=== PATIENT | female | born 1960 | race Caucasian/White ===

== ENCOUNTER 2019-09-23 12:08 | Emergency (ER) | payer OTHER, SELFPAY ==
--- NOTE | ~2019-09-23 | CT_ITS ---
EXAMINATION: CT brain wo con DATE: 09/23/2019 13:25 INDICATION: Head injury. TECHNIQUE: Computed tomography (CT) of the head was performed without intravenous contrast. The mA wa s adjusted according to patient size. Iterative reconstruction technique was employed. The dose-lengt h product was 605.33 mGy-cm. COMPARISON: None FINDINGS: There is no intracranial hemorrhage, acute infarction, or abnormal intracranial mass lesion . The ventricles are normal in size. There is mild mucosal thickening in the paranasal sinuses. The m astoid air cells are normal. The orbits are normal. IMPRESSION: 1. Normal brain. Reviewed, dictated and finalized at location A. IMPRESSION: 1. Normal brain.
--- NOTE | ~2019-09-23 | CT_ITS ---
EXAMINATION: CT cervical spine wo con DATE: 09/23/2019 13:26 INDICATION: Status post fall. Neck pain. TECHNIQUE: Computed tomography (CT) of the cervical spine was performed without intravenous contrast. The dose-length product was 109 mGy-cm. Automated exposure control and iterative reconstruction tech nique were employed. COMPARISON: None FINDINGS: Normal cervical alignment. No acute fracture or traumatic malalignment. No evidence for spo ndylolisthesis. There are a few scattered osteolytic lesions in the cervical spine. Odontoid process within normal limits. There is mild multilevel uncinate hypertrophy. There is biapical pleural thicke linda/scarring. No paravertebral soft tissue abnormality. IMPRESSION: 1. No acute abnormality of the cervical spine. 2: Few scattered osteolytic lesions of the cervical spine including at C4 and C5. Consider myeloma a nd metastatic disease. 3: Mild cervical spondylosis. Reviewed, dictated and finalized at location A. IMPRESSION: 1. No acute abnormality of the cervical spine. 2: Few scattered osteolytic lesions of the cervical spine including at C4 and C5. Consider myeloma and metastatic disease. 3: Mild cervical spondylosis.
[2019-09-23 12:29] VITALS: BP 132/91; PULSE 108; RESP 16; TEMP 36.7; O2SAT 97
[2019-09-23 15:30] VITALS: BP 161/93; PULSE 68; RESP 20; O2SAT 100
--- NOTE | 2019-09-23 15:39 | ED.HEATRA ---
HPI - Head Injury General Chief complaint: Head Injury Stated complaint: PCP sent for possible concussion. Time Seen by Provider: 09/23/19 15:32 Source: patient and RN notes reviewed Mode of arrival: ambulatory Limitations: no limitations History of Present Illness HPI Narrative: Pt is a 59 y/o female presenting to the ED c/o HI secondary to fall. Pt reports she was pushing a trash can yesterday when she fell forward and hit her head on the trash can. Pt states she started having nausea and dry heaving about 2 hrs later, and also reports bilateral eye pain, neck pain, HOUGH, and back pain. Pt states she does not have chronic back pain. Pt notes she took Aleve at 0400 this morning. Pt reports her PCP is Dr. Stover. Onset (ago): unknown (Yesterday) Mechanism of Injury: fall Place: home Associated symptoms: nausea, vomiting (Dry heaving), neck pain and other (Bilateral eye pain; back pain; Headache) Related Data Allergies Allergy/AdvReac Type Severity Reaction Status Date / Time alendronate sodium [Fosamax] Allergy Unknown skull pain. Verified 07/21/17 21:20 NKDA Allergy Unknown Uncoded 10/05/10 11:54 Review of Systems Review of Systems: All systems reviewed & are unremarkable except as noted in HPI and below Eyes: Eyes: Reports eye pain (Bilateral) Gastrointestinal: Gastrointestinal: Reports nausea and Reports vomiting (Dry heaving) Musculoskeletal: Musculoskeletal: Reports back pain and Reports neck pain Neurologic: Reports headache(s) PMFSH Past Medical History Medical History History of basal cell cancer Migraine Surgical History Surgical History No significant past surgical history Family History Family History Grandparent Carcinoma of colon Sibling Colon polyp Mother Family history of atrial fibrillation, Onset Age: 80 Social History Social History Smoking status: Never smoker Alcohol intake: never Gender identity (if verbalized by the patient): Female Exam Narrative: Exam Narrative: GENERAL: well-nourished, patient laying in bed with HEAD: Normocephalic, atraumatic EYES: PERRLA and EOMI, conjunctiva clear without discharge THROAT:Mucous membranes moist, NECK: Supple, without lymphadenopathy or mass RESPIRATORY: No respiratory distress, Airway patent, Respirations non-labored, Clear to auscultation without rales, rhonchi or wheeze HEART: Regular rate and rhythm. No murmur heard. Normal peripheral pulses. ABDOMEN: Soft, nontender, nondistended, normal active bowel sounds. No masses. No rebound or guarding, No organomegaly. EXTREMITIES: No edema, normal strength with full range of motion. SKIN: Warm, dry, normal color without rash NEURO: Alert and oriented x3. CN 2-12 grossly intact. No focal deficits. PSYCH: Normal mood and affect. Course Reevaluation(s) Reevaluation #1: PAtient states she feels much better. I have discuss Ct scan results. Date: 09/23/19 Time: 17:38 Consultations Consultation #1: I discussed CT scan regarding osteolytic lesions in spine. He states patient should call office in the morning to arrange to be see tomorrow in clinic to determine plan Date: 09/23/19 Time: 17:37 Vital Signs Vital signs: Vital Signs Temperature 98.0 F 09/23/19 12:29 Pulse Rate 108 H 09/23/19 12:29 Respiratory Rate 16 09/23/19 12:29 Blood Pressure 132/91 H 09/23/19 12:29 Pulse Oximetry 97 09/23/19 12:29 Temperature 98.0 F 09/23/19 12:29 Pulse Rate 71 09/23/19 18:20 Respiratory Rate 16 09/23/19 18:20 Blood Pressure 129/62 09/23/19 18:20 Pulse Oximetry 98 09/23/19 18:20 MDM - Head Injury Imaging Data Radiologist's impression: ITS Impressions Head CT 09/23/19 13:29 IMPRESSION: 1. Normal brain. Cervical Spine CT 09/23/19 13:46 IMPRESSION: 1. No
[2019-09-23] MEDS: LACTATED RINGERS 1,000 ML 999 ML IV CONT (16:14)
[2019-09-23] MEDS: METOCLOPRAMIDE HCL INJ 10 MG/2 ML VIAL IV PUSH (16:14)
[2019-09-23 18:20] VITALS: BP 129/62; PULSE 71; RESP 16; O2SAT 98
== END 2019-09-23 18:20 | disposition home or self-care (01) ==
PROVIDERS: Emergency Provider General Practice; PCP Family Medicine
DX: S06.0X0A Concussion without loss of consciousness, initial encounter (principal); Z85.828 Personal history of other malignant neoplasm of skin; M47.812 Spondylosis without myelopathy or radiculopathy, cervical region; M89.9 Disorder of bone, unspecified; W01.198A Fall on same level from slipping, tripping and stumbling with subsequent striking against other object, initial encounter
CPT/HCPCS: 70450; 72125; 96361; 96374; 96375; 99284; J0131; J1200; J2765; J7120; L0140

== ENCOUNTER → 2019-10-04 09:54 | Outpatient (CLI) | payer OTHER, SELFPAY ==
--- NOTE | ~2019-10-04 | CT_ITS ---
EXAMINATION: CT abdomen pelvis wo con DATE: 10/04/2019 10:27 INDICATION: Osteolytic lesions of C4-C5 TECHNIQUE: Computed tomography (CT) of the abdomen and pelvis was performed without intravenous contr ast. Automated exposure control and iterative reconstruction technique were employed. Exam dose: 367 .67 mGy-cm total exam DLP. COMPARISON: 10/03/2019 CT cervical spine FINDINGS: Mild discoid atelectasis or scarring in the lower lung zones. No infiltrate or consolidatio n or pulmonary mass lesion is evident. No pericardial or pleural effusion. No hepatic space-occupying mass lesion is evident.. The gallbladder is present. Gallstones cannot be excluded. No gallbladder wall thickening or perichol ecystic fluid or inflammation is evident. Splenic calcified granulomas. Normal splenic size. No pancreatic mass lesion, ductal dilatation or pancreatic calcification. There are 2 small nonobstructing lower pole left renal calculi. No right renal calculus. No ureteral calculus or hydroureteronephrosis. The urinary bladder is evacuated and not optimally evaluated. No bowel obstruction or intraperitoneal free air is evident. Normal caliber and minimal calcification of the abdominal aorta. No intraperitoneal or retroperitonea l or pelvic mass lesion or adenopathy or ascites is evident. Tarlov cysts are noted in the upper sacral area. No suspicious osteolytic or osteoblastic lesions are noted. IMPRESSION: Nonobstructive left nephrolithiasis Reviewed, dictated and finalized at Location A. Reviewed, dictated and finalized at location B.
--- NOTE | ~2019-10-04 | XR_ITS ---
XR chest 2V DATE: 10/04/2019 10:27 INDICATION: Abnormal findings reported on CT cervical spine examination: Biapical pleural thickening/ scarring TECHNIQUE: 2 views COMPARISON: 10/03/2019 CT cervical spine FINDINGS: There is bilateral hyperinflation with relative flattening of the diaphragm and increased r etrosternal airspace, suggesting COPD. Nipple shadows overlie the lower chest on frontal view. There is bilateral apical scarring. No pulmonary infiltrate or consolidation, pleural effusion or pul monary vascular congestion or pneumothorax is detected. Heart size is within normal limits. No hilar or mediastinal enlargement. Diffuse osteopenia. IMPRESSION: Bilateral hyperinflation suggesting COPD Bilateral apical scarring Diffuse osteopenia. Reviewed, dictated and finalized at location D.
--- NOTE | ~2019-10-04 | XR_ITS ---
XR lumbar spine min 4V DATE: 10/04/2019 10:27 INDICATION: Osteolytic lesions reported in cervical spine on 10/03/2019 CT cervical spine examination TECHNIQUE: Standing AP, lateral and coned lateral lumbosacral views. Standing bilateral oblique views . COMPARISON: 09/23/2019 CT cervical spine 01/25/2013 MRI lumbar spine FINDINGS: There is diffuse osteopenia. No fracture or spondylolisthesis. No spondylolysis. The lumbar and included lower thoracic pedicles a re intact. The lumbar and lumbosacral interspaces are well preserved. The sacroiliac joints appear no rmal. IMPRESSION: Osteopenia Reviewed, dictated and finalized at location D. IMPRESSION: Osteopenia
== END ==
PROVIDERS: PCP Family Medicine; Visit Provider Family Medicine
DX: R93.7 Abnormal findings on diagnostic imaging of other parts of musculoskeletal system (principal); N20.0 Calculus of kidney; M85.88 Other specified disorders of bone density and structure, other site; R91.8 Other nonspecific abnormal finding of lung field
CPT/HCPCS: 71046; 72110; 74176

== ENCOUNTER → 2019-10-09 07:06 | Outpatient (CLI) | payer OTHER, SELFPAY ==
--- NOTE | ~2019-10-09 | MR_ITS ---
EXAMINATION: MR cervical spine wo con DATE: 10/09/2019 08:19 INDICATION: Headache TECHNIQUE: Magnetic resonance imaging (MRI) of the cervical spine was performed without intravenous c ontrast. Sequences included sagittal T2-weighted FSE, sagittal T2-weighted FS FSE, sagittal T1-weight ed FSE, axial MERGE and axial T2-weighted FSE. COMPARISON: CT dated 09/23/2019 FINDINGS: Evaluation mildly limited by some motion artifact or blurring to some degree on multiple sequences. M ildly exaggerated cervical lordosis. Vertebral body heights are normal. Bone marrow signal intensit y is normal. Specifically no lesions identified at the regions of increased lucency on prior CT which is likely related to spotty osteopenia. Intervertebral disc heights are normal. Cord signal appears normal on the axial and T2-weighted sagittal images with likely artifactual mild heterogeneity to the signal on the STIR images. Prominent perineural cyst at the right T1-T2 neural foramen. Likely benig n T2 hyperintense 3 mm nodule in the left thyroid lobe. Posterior biapical pleural-parenchymal scarri ng. The following disc levels are specifically discussed: C2-C3: The disc does not extend beyond the endplate margin. There is minimal bilateral uncovertebral joint osteoarthritis. There is minimal left and mild right facet joint osteoarthritis. There is no ne ural foraminal stenosis. There is no central canal stenosis. C3-C4: The disc does not extend beyond the endplate margin. There is mild left and minimal right unco vertebral joint osteoarthritis. There is mild right and minimal left facet joint osteoarthritis. Ther e is no neural foraminal stenosis. There is no central canal stenosis. C4-C5: The disc does not extend beyond the endplate margin. There is mild bilateral uncovertebral warren nt osteoarthritis. There is moderate left and mild to moderate right facet joint osteoarthritis. Ther e is no neural foraminal stenosis. There is no central canal stenosis. C5-C6: The disc does not extend beyond the endplate margin. There is mild bilateral uncovertebral warren nt osteoarthritis. There is mild left and mild to moderate right facet joint osteoarthritis. There is mild left neural foraminal stenosis. There is no central canal stenosis. C6-C7: The disc does not extend beyond the endplate margin. There is minimal bilateral uncovertebral joint osteoarthritis. There is minimal bilateral facet joint osteoarthritis. There is no neural koby inal stenosis. There is no central canal stenosis. C7-T1: The disc does not extend beyond the endplate margin. There is minimal bilateral uncovertebral joint osteoarthritis. There is mild left and mild to moderate right facet joint osteoarthritis. There is no neural foraminal stenosis. There is no central canal stenosis. IMPRESSION: 1. Mild cervical spondylosis. No acute osseous abnormality. No suspicious bone lesions. Reviewed, dictated and finalized at location A.
--- NOTE | ~2019-10-09 | MR_ITS ---
EXAMINATION: MR brain/brain stem wo con DATE: 10/09/2019 08:19 INDICATION: Headache TECHNIQUE: Magnetic resonance imaging (MRI) of the brain and brainstem was performed without intraven ous contrast. Sequences included sagittal and axial T1-weighted SE, axial diffusion-weighted FS SE, a xial T2*-weighted GRE, axial T2-weighted FLAIR Propeller, and axial T2-weighted Propeller. Apparent d iffusion coefficient (ADC) maps were created. COMPARISON: CT dated 09/23/2019 and MRI brain dated 06/07/2016. FINDINGS: No acute intracranial hemorrhage, infarction, mass or mass effect. There are scattered mild periventricular and subcortical white matter changes, most likely related to small vessel ischemic d isease (microangiopathy). Structures of the posterior fossa including 7/8th cranial nerve complexes a re normal. There is a small mucous retention cyst left maxillary sinus. Midline sagittal images are u nremarkable. Flow voids are unremarkable. No ventriculomegaly or midline shift. IMPRESSION: 1. No acute intracranial abnormality. 2: Chronic age-related findings. Reviewed, dictated and finalized at location A.
== END ==
PROVIDERS: PCP Family Medicine; Visit Provider Psychiatry & Neurology Neurology
DX: R51 Headache (principal); M47.892 Other spondylosis, cervical region
CPT/HCPCS: 70551; 72141

== ENCOUNTER 2019-10-09 08:34 | Outpatient (CLI) | payer OTHER, SELFPAY ==
--- NOTE | ~2019-10-09 | NM_ITS ---
NM bone scan whole body INDICATION: Osteolytic lesions of the cervical spine. Evaluate for abnormal tracer uptake. TECHNIQUE: The patient was injected with 25 mCi Tc 99m HDP. Gamma camera images of the region of int erest and whole body were obtained. COMPARISON: CT cervical spine dated 09/23/2019 FINDINGS: There is normal distribution of radiopharmaceutical throughout the skeletal and soft tissue structures. There is mild uptake in the shoulders, consistent with degenerative joint disease. No fo alanna increased radiotracer uptake is identified in the cervical spine. IMPRESSION: 1: Normal bone scan for age. Reviewed, dictated and finalized at location A.
== END 2019-10-09 08:35 | disposition home or self-care (01) ==
PROVIDERS: PCP Family Medicine; Visit Provider Family Medicine
DX: R93.7 Abnormal findings on diagnostic imaging of other parts of musculoskeletal system (principal)
CPT/HCPCS: 78306; A9561

== ENCOUNTER 2019-10-10 13:47 | Outpatient (CLI) | payer OTHER, SELFPAY ==
[2019-10-10 14:02] LABS: Basophils Absolute Auto 0.1 K/mm3 (0.0-0.1); Basophils Percent Auto 1.4 % (0.2-1.2); Eosinophils Absolute Auto 0.2 K/mm3 (0-0.3); Eosinophils Percent Auto 3.5 % (0-4.4); Hematocrit 41.8 % (37.0-47.0); Hemoglobin 13.6 g/dL (12.0-15.0); Immature Granulocyte Absolute 0.01 K/mm3 (0.00-0.031); Immature Granulocyte Percent A 0.2 % (0-0.5); Lymphocytes Absolute Auto 2.24 K/mm3 (0.9-3.2); Lymphocytes Percent Auto 39.4 % (18.3-44.2); Mean Corpuscular HGB Conc 32.5 g/dl (32-36); Mean Corpuscular Hemoglobin 30.4 pg (26-34); Mean Corpuscular Volume 93.5 fl (80-100); Mean Platelet Volume 10.4 fl (7.4-10.4); Monocytes Absolute Auto 0.6 K/mm3 (0.1-0.6); Monocytes Percent Auto 10.7 % (2.6-8.5); Neutrophils Absolute Auto 2.6 K/mm3 (1.3-6.7); Neutrophils Percent Auto 44.8 % (45.5-73.1); Platelet Count Result 251 k/mm3 (150-375); Red Blood Count 4.47 M/mm3 (4.2-5.4); Red Cell Distribution Width 12.8 % (11.5-14.5); White Blood Count 5.7 K/mm3 (4.5-10.0)
[2019-10-10 16:03] LABS: Alanine Aminotransferase 21 U/L (4-35); Albumin Level 4.8 g/dL (3.5-5.1); Alkaline Phosphatase 87 U/L (38-126); Aspartate Amino Transferase 24 U/L (14-36); Bilirubin,Total 0.3 mg/dL (0.2-1.3); Blood Urea Nitrogen 18 mg/dL (7-17); CRP < 0.5 mg/dL (<1.0); Calcium 10.3 mg/dL (8.4-10.2); Carbon Dioxide 30 mmol/L (22-30); Chloride 100 mmol/L (98-107); Estimated Glomerular Filt Rate > 60; Glucose 93 mg/dL (65-105); Potassium 4.5 mmol/L (3.4-5.0); Sodium 139 mmol/L (137-145)
[2019-10-10 16:06] LABS: Immunoglobulin A 89 mg/dL (70-400); Immunoglobulin G 787 mg/dL (700-1600); Immunoglobulin M 108 mg/dL (40-230)
[2019-10-13 03:23] LABS: Albumin 4.7 g/dL (3.8-4.8); Alpha 1 Globulin 0.3 g/dL (0.2-0.3); Alpha 2 Globulin 0.9 g/dL (0.5-0.9); Beta 1 Globulin 0.5 g/dL (0.4-0.6); Gamma Globulin 0.7 g/dL (0.8-1.7); Interpretation Consistent with; Protein, Total 7.3 g/dL (6.1-8.1)
[2019-10-13 03:38] LABS: Kappa\\Lambda Light Chains 1.59 (0.26-1.65); Lambda Light Chain 11.6 mg/L (5.7-26.3)
== END 2019-10-10 13:48 | disposition home or self-care (01) ==
LOC: ANHLAB 13:48
PROVIDERS: PCP Family Medicine; Referring Provider Family Medicine; Visit Provider Internal Medicine Hematology & Oncology
DX: D72.9 Disorder of white blood cells, unspecified (principal)
CPT/HCPCS: 36415; 80053; 82248; 82784; 83883; 84155; 84165; 85025; 86140; 86334

== ENCOUNTER 2021-04-30 00:23 | Day surgery (SDC) | payer OTHER, SELFPAY ==
[2021-04-30 08:17] VITALS: BP 127/87; PULSE 80; RESP 20; TEMP 36.1; O2SAT 95; BMI 18.3
--- NOTE | 2021-04-30 08:24 | WPDGICN ---
Assessment and Plan Assessment and plan (1) Dysphagia: Qualifiers: Dysphagia type: pharyngoesophageal phase Qualified Code(s): R13.14 - Dysphagia, pharyngoesophageal phase Code(s): R13.10 - Dysphagia, unspecified Status: Acute Assessment and Plan: Patient has difficulty swallowing with solid foods catching the mid to upper portion of the chest suspicious for narrowing of the esophagus. Plan is for EGD to assess more thoroughly. Potentially to dilate the esophagus. Further recommendations will be given after endoscopy. (2) Family history of colonic polyps: Code(s): Z83.71 - Family history of colonic polyps Status: Acute Assessment and Plan: Patient's sibling has colon polyps. A grandparent had colon cancer. For this reason surveillance colonoscopy is recommended now and should be considered every 5-10 years. Further recommendations will be given after colonoscopy. GI Consult Note Consult date/time: 04/30/21 08:24 HPI: Es Stevens is a 60 year old female Presents for both colonoscopy and EGD. Patient sister had colon polyps. Patient reports that her own weight appetite bowel movements are normal. She denies abdominal pain. She has had no bleeding. There is a grandparent who had colon cancer. Patient desires neoplasia screening. Additionally patient complains of difficulty swallowing. For several years she states that food will catch in the upper portion of the chest. Typically this will occur with meats and more solid foods. Frequency of food catching has intensified over recent years. Patient denies any weight loss or bleeding. Family history is significant her father had something similar to this occur at an advanced age. Patient presents today for EGD to assess more thoroughly. Review of Systems Review of Systems: All systems reviewed & are unremarkable except as noted in HPI and below [facility] Past Medical History Medical History (Updated 02/17/21 @ 14:02 by Armida Stover MD) History of basal cell cancer Migraine Surgical History Surgical History No significant past surgical history Family History Family History Grandparent Carcinoma of colon Sibling Colon polyp Mother Family history of atrial fibrillation, Onset Age: 80 Social History Social History Smoking status: Never smoker Alcohol intake: never Living arrangements: with family Gender identity (if verbalized by the patient): Female Spiritual care concerns: No Meds Home Medications and Allergies Home Medications Medication Instructions Recorded Confirmed Type cholecalciferol (vitamin D3) 75 75 mcg PO DAILY 02/17/21 04/20/21 History mcg (3,000 unit) tablet denosumab 60 mg/mL subcutaneous 60 mg SUBCUT [id number] 02/17/21 04/20/21 History syringe calcium carbonate-vitamin D2 4 tablet PO DAILY 04/20/21 04/20/21 History [Calcium + Vitamin D] multivitamin 1 tablet PO DAILY 04/20/21 04/20/21 History Allergies Allergy/AdvReac Type Severity Reaction Status Date / Time alendronate sodium [Fosamax] AdvReac Mild skull pain. Verified 04/30/21 08:16 Vital Signs Vital Signs - 24 hr 04/30/21 08:17 Temperature 96.9 F L Pulse Rate 80 Respiratory Rate 20 Blood Pressure 127/87 Pulse Oximetry 95 Exam Narrative: Physical exam reveals patient to be alert. Vital signs stable. HEENT exam is unremarkable. Patient is anicteric. Lungs are clear to auscultation and percussion. Heart is without murmur or extra sounds. Abdominal exam bowel sounds are present soft nontender with no organomegaly. Digital external rectal exam is normal.
[2021-04-30] MEDS: LACTATED RINGERS 1,000 ML 150 ML IV CONT (08:36)
--- NOTE | 2021-04-30 08:38 | P.PNAN_ITS ---
Anes - Initial Pre Proc Eval Procedure: Operation Date: 04/30/21 09:30 Proposed Procedures p Esophagogastroduodenoscopy & Screening Colonoscopy - Luis Alberto Chew MD Date/Time: 04/30/21 08:38 Surgeon: Luis Alberto Chew MD Pre Op Diagnosis: family hx of colon ca, dysphagia Patient Data Age: 60 Gender: F Height: 1.75 m Weight: 56.5 kg Last Vital Signs Temp 36.1 C L 04/30/21 08:17 Pulse 80 04/30/21 08:17 Resp 20 04/30/21 08:17 BP 127/87 04/30/21 08:17 Pulse Ox 95 04/30/21 08:17 Allergies Allergy/AdvReac Type Severity Reaction Status Date / Time alendronate sodium [Fosamax] AdvReac Mild skull pain. Verified 04/30/21 08:16 Home Medications Medication Instructions Recorded Confirmed Type cholecalciferol (vitamin D3) 75 75 mcg PO DAILY 02/17/21 04/20/21 History mcg (3,000 unit) tablet denosumab 60 mg/mL subcutaneous 60 mg SUBCUT [id number] 02/17/21 04/20/21 History syringe calcium carbonate-vitamin D2 4 tablet PO DAILY 04/20/21 04/20/21 History [Calcium + Vitamin D] multivitamin 1 tablet PO DAILY 04/20/21 04/20/21 History Patient hx anesthesia problems: none Family hx anesthesia problems: none Results Review: All pre-operative results and documents have been reviewed as part of the pre-operative evaluation. [facility] Past Medical History Medical History History of basal cell cancer Migraine Surgical History Surgical History No significant past surgical history Family History Family History Grandparent Carcinoma of colon Sibling Colon polyp Mother Family history of atrial fibrillation, Onset Age: 80 Social History Social History Smoking status: Never smoker Alcohol intake: never Living arrangements: with family Gender identity (if verbalized by the patient): Female Spiritual care concerns: No Anes - Eval Final PreProcedure Day of Procedure 04/30/21 08:38 Patient weight: normal Heart: regular rate and rhythm Lungs: clear to auscultation Airway: Mallampati scale class 1 Neurological: alert and oriented Last oral intake: >/= 8 hours ASA classification: I Emergent: no Anesthetic plan: proceed Anesthesia type and monitoring: general GIVS and standard monitoring Results Review: All pre-operative results and documents have been reviewed as part of the pre-operative evaluation. Informed Consent: The patient's anesthetic plan and its attendant risks and benefits were discussed with the patient/family/POA. Questions were solicited and answers provided to the satisfaction of the patient/family/POA.
[2021-04-30 09:19] VITALS: BP 87/59; PULSE 70; RESP 19; O2SAT 99
[2021-04-30 09:29] VITALS: BP 98/70; PULSE 72; RESP 20; O2SAT 100
[2021-04-30 09:39] VITALS: BP 120/76; PULSE 60; RESP 12; O2SAT 100
== END 2021-04-30 09:55 | disposition home or self-care (01) ==
PROVIDERS: PCP Family Medicine; Visit Provider Internal Medicine Gastroenterology
PROC: 0DJ08ZZ Inspection of Upper Intestinal Tract, Via Natural or Artificial Opening Endoscopic (ICD-10-PCS; CPT 43235; principal; 2021-04-30 09:30)
DX: Z12.11 Encounter for screening for malignant neoplasm of colon (principal); K64.8 Other hemorrhoids; Z83.71 Family history of colonic polyps; R13.14 Dysphagia, pharyngoesophageal phase; K63.5 Polyp of colon; Q39.4 Esophageal web; Z85.828 Personal history of other malignant neoplasm of skin
CPT/HCPCS: 45380; 43450; 43235; 88305; J2001; J2704; J7120

== ENCOUNTER 2022-02-23 15:15 | Outpatient (NON) | payer OTHER, SELFPAY ==
[2022-02-23 20:08] LABS: IFOB Positive Control Positive; Immunochemical Fecal Occult Bl Negative (N)
== END 2022-02-23 15:16 | disposition home or self-care (01) ==
LOC: ANHGOSHLAB 15:16
PROVIDERS: PCP Family Medicine; Visit Provider Family Medicine
DX: Z12.11 Encounter for screening for malignant neoplasm of colon (principal)
CPT/HCPCS: 82274

== ENCOUNTER → 2023-01-20 08:23 | Outpatient (CLI) | payer OTHER, SELFPAY ==
--- NOTE | ~2023-01-20 | CT_ITS ---
CT Scan of the Chest without Contrast: Clinical Indication: Solitary pulmonary nodule Technique: Contiguous sections were acquired throughout the chest without intravenous contrast. Dose reduction technique was used on this scan by utilizing automated exposure control and iterative recon struction technique. The dose-length product (DLP) was 45.05 mGy-cm. Findings: There is no evidence of any significant mediastinal, hilar or axillary lymphadenopathy. The mediastin al soft tissues appear normal. There is no evidence of pleural or pericardial effusion. Biapical pulmonary scarring present. Right lower lobe calcified granuloma present. Images through the upper abdomen reveal no abnormalities. Impression: Biapical pulmonary scarring. Calcified right lower lobe granuloma. Reviewed, dictated and finalized at location . Impression: Biapical pulmonary scarring. Calcified right lower lobe granuloma.
== END ==
PROVIDERS: PCP Physician Assistant; Visit Provider Physician Assistant
DX: R91.1 Solitary pulmonary nodule (principal)
CPT/HCPCS: 71250

== ENCOUNTER → 2023-02-24 09:51 | Outpatient (CLI) | payer OTHER, SELFPAY ==
--- NOTE | ~2023-02-24 | US_ITS ---
Pelvic ultrasound. Clinical History: Distention Technique: Realtime transabdominal scanning of the pelvis was performed. Color flow Doppler and Doppl er spectral analysis were performed. Findings: The uterus is anteverted. The endometrial stripe has a thickness of 2 mm. No focal mass is identified. The right ovary measures 2.9 x 1.9 x 2.1 cm. No significant right ovarian or adnexal mass is seen. The left ovary measures 1.5 x 1.7 x 1.0 cm. No significant left ovarian or adnexal mass is seen. Vascular flow present in both ovaries on Doppler spectral analysis. There is no evidence of free fluid in the cul de sac. Impression: Unremarkable pelvic ultrasound. Reviewed, dictated and finalized at location . Impression: Unremarkable pelvic ultrasound.
== END ==
PROVIDERS: PCP Family Medicine; Visit Provider Family Medicine
DX: R14.0 Abdominal distension (gaseous) (principal)
CPT/HCPCS: 76856

== ENCOUNTER 2023-10-23 15:03 | Outpatient (CLI) | payer OTHER, SELFPAY ==
--- NOTE | ~2023-10-23 | XR_ITS ---
Right foot Technique: AP, oblique, and lateral views were obtained. Clinical History: Pain Findings: There is an acute, oblique, mildly displaced fracture of the fifth metatarsal shaft. No int ra-articular extension. There is mild degenerative change of the first MTP joint. Soft tissues are un remarkable. Impression: Acute, oblique fracture of the fifth metatarsal shaft, as detailed above. Reviewed, dictated and finalized at location . Impression: Acute, oblique fracture of the fifth metatarsal shaft, as detailed above.
== END 2023-10-23 15:04 ==
PROVIDERS: PCP Family Medicine; Visit Provider Nurse Practitioner Family
DX: S92.351A Displaced fracture of fifth metatarsal bone, right foot, initial encounter for closed fracture (principal); X58.XXXA Exposure to other specified factors, initial encounter
CPT/HCPCS: 73630

== ENCOUNTER 2024-04-11 07:00 | Outpatient (NON) | payer OTHER, SELFPAY | END 2024-04-11 07:01 | disposition home or self-care (01) | LOC: ANHLAB 04-12 10:01 | PROVIDERS: PCP Family Medicine; Visit Provider Internal Medicine Gastroenterology | DX: R13.10 Dysphagia, unspecified (principal) | CPT/HCPCS: 88305 ==

== ENCOUNTER 2024-04-11 11:47 | Day surgery (SDC) | payer OTHER, SELFPAY ==
[2024-03-07 10:03] VITALS: BMI 20.2
[2024-03-07 10:56] VITALS: BMI 20.4
[2024-04-11 12:10] VITALS: BP 121/85; PULSE 71; RESP 16; TEMP 37.2; O2SAT 99
[2024-04-11] MEDS: LACTATED RINGERS 1,000 ML 150 ML IV CONT (12:23)
--- NOTE | 2024-04-11 12:39 | WPDANESEPPF ---
Anes - Initial Pre Proc Eval Procedure: Operation Date: 04/11/24 13:30 Proposed Procedures p Esophagogastroduodenoscopy - Luis Alberto Chew MD Date/Time: 04/11/24 12:39 Surgeon: Luis Alberto Chew MD Pre Op Diagnosis: Dysphagia, unspecified Patient Data Age: 63 Gender: F Height: 1.73 m Weight: 59.6 kg Last Vital Signs Temp 37.2 C 04/11/24 12:10 Pulse 71 04/11/24 12:10 Resp 16 04/11/24 12:10 BP 121/85 04/11/24 12:10 Pulse Ox 99 04/11/24 12:10 O2 Del Method Room Air 04/11/24 12:10 Allergies Allergy/AdvReac Type Severity Reaction Status Date / Time alendronate sodium [Fosamax] AdvReac Mild Headache Verified 04/11/24 12:09 Home Medications Medication Instructions Recorded Confirmed Type denosumab 60 mg/mL subcutaneous 60 mg subcut [id number] 02/17/21 04/11/24 History syringe (Prolia) calcium carb-ergocalciferol (vit 4 tablet PO DAILY 04/20/21 04/11/24 History D2) 600 mg calcium-200 unit tablet famotidine 20 mg tablet 20 mg PO QHS #90 tabs 02/28/24 04/11/24 Rx omega-3 fatty acids 1,000 mg PO DAILY 03/29/24 04/11/24 History Patient hx anesthesia problems: none Family hx anesthesia problems: none Results Review: All pre-operative results and documents have been reviewed as part of the pre-operative evaluation. 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 04.30.21 egd: esophageal web/ dilated History of basal cell cancer Migraine Surgical History Surgical History History of esophagogastroduodenoscopy (EGD) 04.30.21 : esophageal web/ dilated Hx of colonoscopy 04.30.21 : polyps/ repeat in 5 years No significant past surgical history Family History Family History Grandparent Carcinoma of colon Sibling Colon polyp Mother Family history of atrial fibrillation, Onset Age: 80 Social History Social History Smoking status: Never smoker Alcohol intake: never Alcohol use details: may drink once a month Substance use: never Substance use type: does not use Lack of Transportation: No Lack of Food: Never True Current Housing: I Have Housing Concerned About Future Housing: No Difficulty Paying Gas/Electric Bills: No Difficulty Paying for Meds: No Currently Unemployed: No Education: Bachelor's Degree Difficulty w/ Childcare or Family Care: No Living arrangements: with family Additional living arrangements comments: Gender identity (if verbalized by the patient): Female Spiritual care concerns: No Anes - Eval Final PreProcedure Day of Procedure 04/11/24 12:39 Patient weight: normal Heart: regular rate and rhythm Lungs: clear to auscultation Airway: Mallampati scale class II Neurological: alert and oriented Last oral intake: >/= 8 hours ASA classification: II Emergent: no Anesthetic plan: proceed Anesthesia type and monitoring: general GIVS and standard monitoring Results Review: All pre-operative results and documents have been reviewed as part of the pre-operative evaluation. Informed Consent: The patient's anesthetic plan and its attendant risks and benefits were discussed with the patient/family/POA. Questions were solicited and answers provided to the satisfaction of the patient/family/POA.
--- NOTE | 2024-04-11 12:53 | PM.HPGS ---
History of Present Illness History of Present Illness Consent: Risks, benefits, and alternatives have been discussed and questions answered. Patient agrees to proceed with procedure. Chief complaint: Dysphagia, unspecified Narrative: Es Stevens is a 63 year old female referred for EGD for recurrent dysphagia. When eating solid foods it appears to catch in her throat. She is unable eat or swallow till she regurgitates her food. Patient denies any heartburn. She states symptoms have been happening more frequently. Patient did have an EGD several years ago with small web identified. This was dilated. She has not been on any specific medications. Recently was started on a trial of famotidine for possible acid reflux. Patient referred today because of recurrent difficulty swallowing an EGD will be performed. Currently she is holding Fosamax for concern over possible difficulty with this medication. 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 04.30.21 egd: esophageal web/ dilated History of basal cell cancer Migraine Surgical History Surgical History History of esophagogastroduodenoscopy (EGD) 04.30.21 : esophageal web/ dilated Hx of colonoscopy 04.30.21 : polyps/ repeat in 5 years No significant past surgical history Family History Family History Grandparent Carcinoma of colon Sibling Colon polyp Mother Family history of atrial fibrillation, Onset Age: 80 Social History Social History Smoking status: Never smoker Alcohol intake: never Alcohol use details: may drink once a month Substance use: never Substance use type: does not use Lack of Transportation: No Lack of Food: Never True Current Housing: I Have Housing Concerned About Future Housing: No Difficulty Paying Gas/Electric Bills: No Difficulty Paying for Meds: No Currently Unemployed: No Education: Bachelor's Degree Difficulty w/ Childcare or Family Care: No Living arrangements: with family Additional living arrangements comments: Gender identity (if verbalized by the patient): Female Spiritual care concerns: No Meds Home Medications and Allergies Home Medications Medication Instructions Recorded Confirmed Type denosumab 60 mg/mL subcutaneous 60 mg subcut [id number] 02/17/21 04/11/24 History syringe (Prolia) calcium carb-ergocalciferol (vit 4 tablet PO DAILY 04/20/21 04/11/24 History D2) 600 mg calcium-200 unit tablet famotidine 20 mg tablet 20 mg PO QHS #90 tabs 02/28/24 04/11/24 Rx omega-3 fatty acids 1,000 mg PO DAILY 03/29/24 04/11/24 History Allergies Allergy/AdvReac Type Severity Reaction Status Date / Time alendronate sodium [Fosamax] AdvReac Mild Headache Verified 04/11/24 12:09 Vital Signs Vital Signs - 24 hr 04/11/24 12:10 Temperature 99 F Pulse Rate 71 Respiratory Rate 16 Blood Pressure 121/85 Pulse Oximetry 99 Oxygen Delivery Room Air Exam Narrative: Physical exam reveals patient to be alert. Vital signs stable. HEENT exam is unremarkable. Patient is anicteric. Lungs are clear to auscultation and heart is without murmur or extra sounds. Abdomen bowel sounds are present soft nontender with no organomegaly. Assessment and Plan Assessment and plan (1) Dysphagia: Qualifiers: Dysphagia type: pharyngoesophageal phase Qualified Code(s): R13.14 - Dysphagia, pharyngoesophageal phase Code(s): R13.10 - Dysphagia, unspecified Status: Acute Assessment and Plan: His
[2024-04-11 14:31] VITALS: BP 123/77; PULSE 66; RESP 20; O2SAT 97
[2024-04-11 14:41] VITALS: BP 119/83; PULSE 64; RESP 20; O2SAT 98
[2024-04-11 14:51] VITALS: BP 133/83; PULSE 65; RESP 18; O2SAT 99
--- NOTE | 2024-04-11 15:04 | WPDANESPN ---
Anes - Prog Note Post-Op Date/Time: 04/11/24 15:04 Cardiovascular status: normal Respiratory status: normal Airway patency: baseline Mental status: baseline Post-Op hydration status: normal Vital Signs: Last Vital Signs Temp 37.2 C 04/11/24 12:10 Pulse 65 04/11/24 14:51 Resp 18 04/11/24 14:51 BP 133/83 04/11/24 14:51 Pulse Ox 99 04/11/24 14:51 O2 Del Method Room Air 04/11/24 14:51 Pain Score (VAS): 0 I/O: Intake & Output 04/10/24 04/11/24 04/11/24 23:59 07:59 15:59 Intake Total 700 Balance 700 Patient Feedback: Patient satisfied with anesthetic care.
== END 2024-04-11 15:00 | disposition home or self-care (01) ==
PROVIDERS: PCP Family Medicine; Visit Provider Internal Medicine Gastroenterology
PROC: 0DJ08ZZ Inspection of Upper Intestinal Tract, Via Natural or Artificial Opening Endoscopic (ICD-10-PCS; CPT 43235; principal; 2024-04-11 13:30)
DX: R13.19 Other dysphagia (principal); Q39.4 Esophageal web; K22.89 Other specified disease of esophagus
CPT/HCPCS: 43450; 43239

== ENCOUNTER 2024-10-09 08:42 | Outpatient (CLI) | payer MEDICARE, SELFPAY ==
--- NOTE | ~2024-10-09 | US_ITS ---
EXAMINATION: US transvaginal DATE: 10/09/2024 09:08 INDICATION: Postmenopausal bleeding. TECHNIQUE: Multiple transvaginal sonographic images of the pelvis were obtained. COMPARISON: Ultrasound 02/24/2023, CT abdomen and pelvis 10/04/2019 FINDINGS: The uterus measures 5.0 x 3.4 x 2.0 cm. There is a 7 mm uterine fibroid. There is no free fluid in th e pelvis. The endometrial complex measures 4 mm in thickness. The right ovary measures 3.6 x 2.6 x 3. 2 cm. The left ovary is not visualized. IMPRESSION: 1. Normal endometrial complex. Reviewed, dictated and finalized at location A.
== END 2024-10-09 08:43 | disposition home or self-care (01) ==
PROVIDERS: PCP Family Medicine; Visit Provider Student in an Organized Health Care Education/Training Program
DX: N95.0 Postmenopausal bleeding (principal)
CPT/HCPCS: 76830